=== PATIENT | female | born 1955 | race Two or more races ===

== ENCOUNTER 2017-05-08 14:21 | Emergency (ER) | payer MEDICAID ==
--- NOTE | 2017-05-08 14:52 | ER Document Report ---
ED Psych Disorder / Suicide <ANGELICA CHU - Last Filed: 05/08/17 20:37> - General Mode of Arrival: Ambulatory Information source: Patient, Emergency Med Personnel TRAVEL OUTSIDE OF THE U.S. IN LAST 30 DAYS: No - HPI Onset: Just prior to arrival <YARELI KAUFMAN - Last Filed: 05/08/17 21:59> - General Stated Complaint: PSYCH EVAL Time Seen by Provider: 05/08/17 14:37 Notes: Patient is a 61 year old female who was brought to the emergency department by EMS. EMS states that the landlord called police after unusual behavior from patient. EMS stated that it looks like the patient has not been taking her medication of Zyprexa. While at bedside, patient was not comprehensible. Patient would answer questions with unrelated topics. Able to determine patient lives alone and that she has a son who is with kids in a different state. Patient states that she has been unable to sleep and in need of sleep medications. (YARELI KAUFMAN) Past Medical History - General Information source: Patient, Emergency Med Personnel - Social History Smoking Status: Current Some Day Smoker Family History: None <YARELI KAUFMAN - Last Filed: 05/08/17 21:59> Review of Systems - Review of Systems Constitutional: No symptoms reported EENT: No symptoms reported Cardiovascular: No symptoms reported Respiratory: No symptoms reported Gastrointestinal: No symptoms reported Genitourinary: No symptoms reported Female Genitourinary: No symptoms reported Musculoskeletal: No symptoms reported Skin: No symptoms reported Hematologic/Lymphatic: No symptoms reported Neurological/Psychological: See HPI, Confusion, Other - unable to sleep -: Yes All other systems reviewed and negative <YARELI KAUFMAN - Last Filed: 05/08/17 21:59> Physical Exam - Psychological Associated symptoms: Manic, Psychomotor agitation, Restlessness, Tangential speech, Unable to sleep <ANGELICA CHU - Last Filed: 05/08/17 20:37> - General General appearance: Appears well, Alert In distress: None - HEENT Head: Normocephalic, Atraumatic Eyes: Normal Conjunctiva: Normal Pupils: PERRL - Respiratory Respiratory status: No respiratory distress Breath sounds: Other - Very hoarse voice - Cardiovascular Rhythm: Regular Heart sounds: Normal auscultation - Abdominal Inspection: Normal - Back Back: Normal - Extremities General upper extremity: Normal inspection, Normal ROM - gesticulates General lower extremity: Normal inspection, Normal ROM - Neurological Neuro grossly intact: Yes Cognition: Normal Orientation: AAOx4 Faison Coma Scale Eye Opening: Spontaneous Faison Coma Scale Verbal: Oriented Faison Coma Scale Motor: Obeys Commands Faison Coma Scale Total: 15 Speech: Normal - Skin Skin Temperature: Warm Skin Moisture: Dry Skin Color: Normal <YARELI KAUFMAN Last Filed: 05/08/17 21:59> Course - Laboratory Result Diagrams: 05/08/17 15:00 05/08/17 15:00 - EKG Interpretation by Nv EKG shows normal: Sinus rhythm, [place], Intervals, QRS Complexes, ST-T Waves Rate: Tachycardia - 101 Voltage: Consistant with LVH When compared to previous EKG there are: Previous EKG unavailable <ANGELICA CHU - Last Filed: 05/08/17 20:37> - Laboratory Result Diagrams: 05/08/17 15:00 05/08/17 15:00 <YARELI KAUFMAN - Last Filed: 05/08/17 21:59> - Laboratory Laboratory results interpreted by me: 05/08/17 05/08/17 15:00 19:00 Carbon Dioxide 31 H Glucose 153 H Urine Blood SMALL H Salicylates < 1.0 L Acetaminophen < 10 L Discharge <ANGELICA CHU - Last Filed: 05/08/17 20:37> <YARELI KAUFMAN Last Filed: 05/08/17 21:59> - Discharge Clinical Impression: Acute psychosis Condition: Good Disposition: PSYCH HOSP/UNIT Referrals: ANNA NAZARIO PA-C [Primary Care Provider] - Follow up as needed Scribe Attestation: 05/08/17 16:17 I personally performed the services described in the documentation, reviewed and edited the documentation which was dictated to the scribe in my presence, and it accurately records my words and actions. (ANGELICA CHU) Scribe Documentation - Scribe Written by Stacia:: Stacia Power, 05/08/2017 15:22 acting as scribe for :: Nicolas <YARELI KAUFMAN Last Filed: 05/08/17 21:59>
[2017-05-08 15:17] LABS: ABSOLUTE BASOPHILS # (AUTO) 0.1 10^3/uL (0.0-0.2); ABSOLUTE EOSINOPHILS # (AUTO) 0.1 10^3/uL (0.0-0.6); ABSOLUTE LYMPHOCYTES (AUTO) 2.5 10^3/uL (0.5-4.7); ABSOLUTE MONOCYTES (AUTO) 0.5 10^3/uL (0.1-1.4); ABSOLUTE NEUT (AUTO) 6.1 10^3/uL (1.7-8.2); BASOPHILS % (AUTO) 1.2 % (0-2); EOSINOPHILS % (AUTO) 1.2 % (0-6); HEMATOCRIT 44.1 % (36.0-47.0); HEMOGLOBIN 14.7 g/dL (12.0-15.5); LYMPHOCYTES % (AUTO) 26.9 % (13-45); MEAN CORPUSCULAR HEMOGLOBIN 30.1 pg (27.0-33.4); MEAN CORPUSCULAR HGB CONC 33.2 g/dL (32.0-36.0); MEAN CORPUSCULAR VOLUME 91 fl (80-97); MONOCYTES % (AUTO) 5.8 % (3-13); RED BLOOD COUNT 4.87 10^6/uL (3.72-5.28); RED CELL DISTRIBUTION WIDTH 13.5 % (11.5-14.0); SEGMENTED NEUTROPHILS % (AUTO) 64.9 % (42-78); WHITE BLOOD COUNT 9.4 10^3/uL (4.0-10.5)
[2017-05-08 15:41] LABS: ALANINE AMINOTRANSFERASE 34 U/L (9-52); ALBUMIN 4.4 g/dL (3.5-5.0); ALKALINE PHOSPHATASE 108 U/L (38-126); ANION GAP 12 (5-19); ASPARTATE AMINO TRANSFERASE 22 U/L (14-36); BILIRUBIN,DIRECT 0.3 mg/dL (0.0-0.4); BILIRUBIN,TOTAL 0.4 mg/dL (0.2-1.3); BLOOD UREA NITROGEN 11 mg/dL (7-20); CALCIUM 9.4 mg/dL (8.4-10.2); CARBON DIOXIDE 31 mmol/L (22-30); CHLORIDE 100 mmol/L (98-107); GLUCOSE 153 mg/dL (75-110); POTASSIUM 4.9 mmol/L (3.6-5.0); SODIUM 142.7 mmol/L (137-145)
[2017-05-08 15:48] LABS: ALCOHOL < 10 mg/dL (NONE DETECTED)
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
[2017-05-08] MEDS ORDERED: NICOTINE 21 MG/24 HR PATCH.TD24 TD ONE (16:29)
[2017-05-08] MEDS ORDERED: OLANZAPINE INJ/PF 10 MG SDV IM ONE (16:31)
[2017-05-08] MEDS ORDERED: BENZTROPINE MESYLATE 1 MG TABLET PO SCH (16:45)
[2017-05-08] MEDS ORDERED: BENZTROPINE MESYLATE 1 MG TABLET PO ONE (17:00)
[2017-05-08] MEDS: OLANZAPINE 5 MG TABLET PO SCH (17:18)
[2017-05-08 19:25] LABS: APPEARANCE,URINE CLEAR; BILIRUBIN,URINE NEGATIVE (NEGATIVE); GLUCOSE, URINE NEGATIVE (NEGATIVE); KETONES,URINE NEGATIVE (NEGATIVE); LEUKOCYTE ESTERASE,URINE NEGATIVE (NEGATIVE); NITRITE,URINE NEGATIVE (NEGATIVE); PROTEIN,URINE NEGATIVE (NEGATIVE); URINE SPECIFIC GRAVITY 1.002; UROBILINOGEN,URINE NEGATIVE mg/dL (<2.0)
[2017-05-08 19:39] LABS: URINE BARBITURATES SCREEN NEGATIVE; URINE METHADONE SCREEN NEGATIVE; URINE OPIATES LOW NEGATIVE
[2017-05-08 19:42] LABS: URINE PHENCYCLIDINE SCREEN NEGATIVE
--- NOTE | 2017-05-08 19:45 | EKG REPORT ---
SEVERITY:- ABNORMAL ECG - SINUS TACHYCARDIA PROBABLE LVH WITH SECONDARY REPOL ABNRM BORDERLINE INFERIOR Q WAVES ST DEPRESSION, CONSIDER ISCHEMIA, INF LEADS : Confirmed by: Sam Cheek MD 08-May-2017 19:43:41
--- NOTE | 2017-05-09 08:25 | PSYCHOLOGICAL NOTE ---
Psych Note - Psych Note Psych Note: Patient is a 61-year-old female who presents via EMS due to agitation and bizarre behaviors within her home setting. Patient is reportedly diagnosed with schizophrenia and is followed by [facility]. Patient resides in a family senior care, [facility] home: . Patient is reportedly prescribed Zyprexa 10 mg tabs 2 tabs daily as well as clonazepam at night to help her sleep. Patient is observed sitting in her room actively psychotic talking with no other individuals who are there. Residential care management specialist, Mr. Gonzalez states the patient was acting aggressively today and is clearly not taking her medications Patient disclosed she speaks little Turkish. She continued to state that she only spoke a little Danish. Patient appears to attempt to say that she speaks Polish and Cypriot. Patient was very difficult to understand with mumbling , labile and switching through multiple languages for conversational speech. Patient does not answer questions clearly however does ask why she is in the hospital. Patient disclosed she has a son, [id number] and their children in [place] however became very agitated when asking their names. Patient then just started to recite "[address] [place] [address]." Patient is alert and oriented to person, place. Mood is agitated with congruent affect. Patient denied suicidal/ideations, intent, plan, means. Patient is clearly responding to internal stimuli. Thought processes were disorganized. Conversational speech was labile for rate and tone, with patient switching between multiple languages and possible gibberish. Intellectual abilities were estimated within average range. Attention and focus were poor. Insight, judgment, and impulse control were poor. 289.9 (F 29) unspecified schizophrenia spectrum and other psychotic disorder Recommended for involuntary commitment for further evaluation and disposition. Patient presents acutely psychotic and is a danger to herself and possibly others at this time. Patient is likely noncompliant with her medication regimen as evidenced by the pill bottles which should be near empty however have numerous pills remaining. I consulted with Dr. Mccann in regards to the care management of this patient. EDRI is in agreement with disposition and recommendations
[2017-05-09] MEDS: BENZTROPINE MESYLATE 1 MG TABLET PO SCH (10:14)
[2017-05-09] MEDS: OLANZAPINE 5 MG TABLET PO SCH (10:14)
--- NOTE | 2017-05-09 10:43 | ER Document Report ---
Doctor's Note Notes: 05/09/17 10:42 Rounds: Chart reviewed and patient interviewed. Patient is being evaluated for unusual behavior. Possibly out of medications. Has not been sleeping. Incoherent. May be a little better today. Vital signs are all normal. Lab studies were all normal. Patient is being held for IVC and has been started on Zyprexa. Patient appears to be medically stable for transfer or discharge. Geovanni Portillo MD
[2017-05-09] MEDS ORDERED: HALOPERIDOL 5 MG TABLET PO ONE (15:54)
[2017-05-09] MEDS ORDERED: HALOPERIDOL LACTATE INJ 5 MG/1 ML VIAL IM ONE (16:10)
[2017-05-09] MEDS: HALOPERIDOL 5 MG TABLET PO SCH (18:54)
[2017-05-10] MEDS: BENZTROPINE MESYLATE 1 MG TABLET PO SCH (09:23)
[2017-05-10] MEDS: HALOPERIDOL 5 MG TABLET PO SCH (09:24)
--- NOTE | 2017-05-10 10:38 | ER Document Report ---
Doctor's Note Notes: 05/10/17 10:36 Rounds: Chart reviewed and patient interviewed. Patient says she is feeling better and does seem to be more oriented and focused and able to answer couple questions. Vital signs have been normal. No new lab studies to report. We are looking for placement although patient might be able to function if someone will be able to devote time to helping her. Patient appears to be medically stable for transfer or discharge. Geovanni Portillo MD
[2017-05-10 13:03] VITALS: BP 128/70
--- NOTE | 2017-05-10 13:52 | PSYCHOLOGICAL NOTE ---
Psych Note - Psych Note Psych Note: Patient was accepted to [facility]; transportation will occur today. 289.9 (F 29) unspecified schizophrenia spectrum and other psychotic disorder Recommended for involuntary commitment for further evaluation and disposition. Patient presents acutely psychotic and is a danger to herself and possibly others at this time. Patient is likely noncompliant with her medication regimen as evidenced by the pill bottles which should be near empty however have numerous pills remaining. I consulted with Dr. Mccann in regards to the care management of this patient. EDMD is in agreement with disposition and recommendations
== END 2017-05-10 13:30 ==
LOC: ER 14:21
DX: F23 Brief psychotic disorder (principal); R49.0 Dysphonia; R45.1 Restlessness and agitation; F17.200 Nicotine dependence, unspecified, uncomplicated; R00.0 Tachycardia, unspecified
CPT/HCPCS: 93005; 99285; 96372; 36415; 80307 ×4; 85025; 80053; 81001; 93010; J3490 ×8; J1630

== ENCOUNTER 2019-04-02 18:14 | Emergency (ER) | payer OTHER ==
--- NOTE | 2019-04-02 18:40 | ER Document Report ---
ED General - General Chief Complaint: Psych Problem Stated Complaint: IVC Time Seen by Provider: 04/02/19 18:39 Primary Care Provider: ANNA NAZARIO PA-C [Primary Care Provider] - Follow up as needed Notes: Patient is a 63-year-old female with a history of schizophrenia and dementia who presents to the emergency department on IVC paperwork. She is a resident at [facility] [place], which is an assisted living facility in [place]. According to the staff members, the patient has not been taking her medications for the past few months. Her son is at bedside, as the patient speaks Cape Verdean (but normally speaks Danish) and due to her not being on her medication, continues to speak Cape Verdean. He is able to translate for me. She denies any suicidal or homicidal ideation at this time. She denies any pain. According to the staff at [facility] [place], the patient was trying to climb out a window. They were concerned for her safety. TRAVEL OUTSIDE OF THE U.S. IN LAST 30 DAYS: No - Related Data Allergies/Adverse Reactions: No Known Allergies Allergy (Unverified 04/02/19 19:12) Past Medical History - General Information source: Patient, Relative - Social History Smoking Status: Unknown if Ever Smoked Family History: None Review of Systems - Review of Systems Notes: REVIEW OF SYSTEMS: CONSTITUTIONAL : Denies recent illness. Denies recent unintentional weight loss. Denies fever, chills, or sweats. EENT: Denies eye, ear, throat, or mouth pain, discharge, or symptoms. Denies nasal or sinus congestion. CARDIOVASCULAR: Denies chest pain. RESPIRATORY: Denies shortness of breath, cough, congestion, difficulty breathing, or wheezing. GASTROINTESTINAL: Denies nausea, vomiting, and diarrhea. Denies abdominal pain. Denies constipation. GENITOURINARY: Denies difficulty urinating, burning, blood in urine, urgency or frequency. MUSCULOSKELETAL: Denies neck and back pain. Denies joint pain or swelling. SKIN: Denies rash, itchiness, or lesions HEMATOLOGIC : Denies easy bruising or bleeding. LYMPHATIC: Denies swollen, painful, enlarged glands. NEUROLOGICAL: Denies no numbness or tingling denies weakness. Denies headache. Denies altered mental status. Denies alteration in speech. PSYCHIATRIC: See HPI. All other systems reviewed and negative. Physical Exam - Vital signs Vitals: Temp Pulse Resp BP Pulse Ox 98.7 F 95 16 174/108 H 100 04/02/19 18:52 04/02/19 18:52 04/02/19 18:52 04/02/19 18:52 04/02/19 18:52 - Notes Notes: PHYSICAL EXAMINATION: GENERAL: Older than stated age, no acute distress. HEAD: Normocephalic, atraumatic. EYES: PERRL, conjunctiva normal, all extraocular movements intact, sclera nonicteric ENT: Moist mucous membranes. NECK: Supple, no noticeable swelling, redness, rash. Normal range of motion. LUNGS: Equal breath sounds bilaterally and clear to auscultation. No wheezes rales or rhonchi. CARDIOVASCULAR: S1-S2, regular rate, regular rhythm. Radial pulses 2+, normal. ABDOMEN: Normoactive bowel sounds. Soft, nontender, no guarding, no rebound tenderness, and no masses palpated. EXTREMITIES: Normal strength and range of motion, no pitting or edema. No cyanosis. NEUROLOGICAL: Moves all extremities upon command. Strength 5/5 in all extremities. PSYCH: Talkative in Cape Verdean. SKIN: Warm, dry. No rash, lesions, ulcerations noted. Normal skin turgor. Course - Re-evaluation Re-evalutation: 04/02/19 21:00 Hematology, chemistry, urinalysis, toxicology is all normal. Patient is medically clear for mental health evaluation. IVC paperwork filled out by . - Vital Signs Vital signs: Temp Pulse Resp BP Pulse Ox 98.7 F 95 16 174/108 H 100 04/02/19 18:52 04/02/19 18:52 04/02/19 18:52 04/02/19 18:52 04/02/19 18:52 - Laboratory Result Diagrams: 04/02/19 18:43 04/02/19 18:43 Laboratory results interpreted by me: 04/02/19 04/02/19 18:24 18:43 Carbon Dioxide 31 H Urine Blood SMALL H Salicylates < 1.0 L Acetaminophen < 10 L Discharge - Discharge Clinical Impression: Dementia Qualifiers: Dementia type: associated with other underlying disease Dementia behavioral disturbance: with behavioral disturbance Qualified Code(s): F02.81 - Dementia in other diseases classified elsewhere with behavioral disturbance Schizophrenia Qualifiers: Schizophrenia type: unspecified Qualified Code(s): F20.9 - Schizophrenia, unspecified Condition: Stable Disposition: PSYCH HOSP/UNIT Referrals: ANNA NAZARIO PA-C [Primary Care Provider] - Follow up as needed
[2019-04-02 19:02] LABS: ABSOLUTE BASOPHILS # (AUTO) 0.1 10^3/uL (0.0-0.2); ABSOLUTE EOSINOPHILS # (AUTO) 0.1 10^3/uL (0.0-0.6); ABSOLUTE LYMPHOCYTES (AUTO) 2.4 10^3/uL (0.5-4.7); ABSOLUTE MONOCYTES (AUTO) 0.5 10^3/uL (0.1-1.4); ABSOLUTE NEUT (AUTO) 4.5 10^3/uL (1.7-8.2); EOSINOPHILS % (AUTO) 1.4 % (0-6); HEMATOCRIT 41.1 % (36.0-47.0); HEMOGLOBIN 13.9 g/dL (12.0-15.5); MEAN CORPUSCULAR HEMOGLOBIN 31.2 pg (27.0-33.4); MEAN CORPUSCULAR HGB CONC 33.7 g/dL (32.0-36.0); MEAN CORPUSCULAR VOLUME 93 fl (80-97); MONOCYTES % (AUTO) 7.1 % (3-13); PLATELET COUNT 279 10^3/uL (150-450); RED BLOOD COUNT 4.45 10^6/uL (3.72-5.28); RED CELL DISTRIBUTION WIDTH 13.7 % (11.5-14.0); SEGMENTED NEUTROPHILS % (AUTO) 59.5 % (42-78); TOTAL CELLS COUNTED % (AUTO) 100 %; WHITE BLOOD COUNT 7.6 10^3/uL (4.0-10.5)
[2019-04-02 19:13] LABS: ALBUMIN 4.3 g/dL (3.5-5.0); ALKALINE PHOSPHATASE 85 U/L (38-126); ANION GAP 7 (5-19); ASPARTATE AMINO TRANSFERASE 25 U/L (14-36); BILIRUBIN,DIRECT 0.1 mg/dL (0.0-0.4); BILIRUBIN,TOTAL 0.3 mg/dL (0.2-1.3); BLOOD UREA NITROGEN 14 mg/dL (7-20); CALCIUM 9.6 mg/dL (8.4-10.2); CARBON DIOXIDE 31 mmol/L (22-30); CHLORIDE 102 mmol/L (98-107); GLUCOSE 91 mg/dL (75-110)
[2019-04-02 19:16] LABS: ACETAMINOPHEN < 10 ug/mL (10-30); ALCOHOL < 10 mg/dL (NONE DETECTED); SALICYLATE < 1.0 mg/dL (2.0-20.0)
[2019-04-02] MEDS ORDERED: OLANZAPINE INJ/PF 10 MG SDV IM PRN (19:18)
[2019-04-02 19:50] LABS: APPEARANCE,URINE CLEAR; BILIRUBIN,URINE NEGATIVE (NEGATIVE); COLOR,URINE YELLOW; GLUCOSE, URINE NEGATIVE (NEGATIVE); KETONES,URINE NEGATIVE (NEGATIVE); LEUKOCYTE ESTERASE,URINE NEGATIVE (NEGATIVE); NITRITE,URINE NEGATIVE (NEGATIVE); PROTEIN,URINE NEGATIVE (NEGATIVE); URINE SPECIFIC GRAVITY 1.006; UROBILINOGEN,URINE NEGATIVE mg/dL (<2.0)
--- NOTE | 2019-04-02 19:56 | EKG REPORT ---
SEVERITY:- ABNORMAL ECG - SINUS RHYTHM PROBABLE LVH WITH SECONDARY REPOL ABNRM : Confirmed by: Mitra Barber MD 02-Apr-2019 19:55:47
[2019-04-02 20:08] LABS: URINE AMPHETAMINES SCREEN NEGATIVE; URINE BARBITURATES SCREEN NEGATIVE; URINE BENZODIAZEPINES SCREEN NEGATIVE; URINE COCAINE SCREEN NEGATIVE; URINE MARIJUANA (THC) SCREEN NEGATIVE; URINE METHADONE SCREEN NEGATIVE; URINE PHENCYCLIDINE SCREEN NEGATIVE
--- NOTE | 2019-04-03 11:35 | PSYCHOLOGICAL NOTE ---
Psych Note - Psych Note Date seen by psych provider: 04/03/19 Time seen by psych provider: 07:25 - Observation at 0725. Chart review at 0754. Evaluation from [id number]. Son collateral at 1508. Psych Note: Presenting Problem: 24 Hour IVC Petition, Son and assisted living manager home Don took her to [facility] but they had no beds so sent her to ED, Hx Schizophrenia and Dementia, noncompliance with medications for months, tried to jump out the first story window yesterday, active psychosis, dramatic mood swings from angry to happy with rapid cycling, no SI/HI and primary language is Greenlandic which she has been going back and forth between it and Faroese as well as nonsensical language at times (patient did so during evaluation, seemed tangential). Observed her having psychomotor agitation (walking/wandering hallways, won't stay in bed, won't stay in her room). Son, Matthew/KALPESH, provided collateral. He reported patient has not been sleeping or taking her antipsychotic. He stated she has had moments like this for many years with Hx Schizophrenia. He noted he went on deployment for 6 months this time and she did it when he went off to college. He noted she has been to [facility] for inpatient hospitalization. He identified she is normally "strict with her medications, has him check it, if there is a color change she has a big fit, then she switches to how she is now, doesn't take the medication, makes up stuff, says she's allergic to it." He came to visit patient and reported "I have never seen her this bad." She was verbally and body language aggressive towards him, this clinician and attending nurse. With son around she allowed Head CT and nicotine patch to be applied. Medication recommendations made by the psychiatric medication provider, Dr. Lucia MD., includes: Request Head CT Discontinue home medications: Zyprexa 20MG QHS and Klonopin 0.5MG QD PRN Add Depakote DR 250MG twice a day for mood stabilization Add Buspar 5MG twice a day for anxiety/calming effect/depression/sleep Treating Physicians are asked to consider avoiding the use of antipsychotic medications (Geodon, Haldol, Zyprexa, Thorazine), benzodiazepines (Klonopin, Xnax, Ativan, Valium), some sleep aids (Ambien, Lunesta, Trazodone in high doses, Seroquel), narcotic pain medications, and steroids (especially prolonged use) as these have been known to cause and/or exacerbate agitation, aggression, mood lability, paranoia and psychosis (hallucinations, delusions) in the elderly population with neurodegenerative processes as seen in dementia. Patient refusing PO medications. Recommendation to use Depakene 250MG BID A low dose antipsychotic, such as Risperdal 0.25MG QD or BID can be helpful Impression/Plan: Recommendation to maintain 24 Hour IVC Petition. Patient has Hx of Schizophrenia, has been off medications for several months, has mood lability (euthymic, irritable), and son reported this is the worst he has seen her. Medication recommendations provided. Attending nurse had to persuade patient to take PO medications which took hours. Consulted with Dr. Mccann regarding the management and care of patient. ED Physician in agreement with recommendations.
[2019-04-03] MEDS ORDERED: DIVALPROEX SODIUM 250 MG TAB.SR.24H PO SCH (12:00)
[2019-04-03] MEDS ORDERED: BUSPIRONE HCL 10 MG TABLET PO SCH (12:00)
[2019-04-03] MEDS ORDERED: DIVALPROEX SODIUM 250 MG TAB.SR.24H PO ONE ×2 (13:00→13:23)
[2019-04-03] MEDS ORDERED: BUSPIRONE HCL 10 MG TABLET PO ONE ×2 (13:00→13:23)
[2019-04-03] MEDS: DIVALPROEX SODIUM 250 MG TABLET.DR PO ONE ×2 (13:01→13:25)
[2019-04-03] MEDS: BUSPIRONE HCL 10 MG TABLET PO ONE ×2 (13:01→13:25)
--- NOTE | 2019-04-03 13:23 | ER Document Report ---
Doctor's Note Notes: 04/03/19 13:08 [id number] female with a history of schizophrenia dementia noncompliance was at the assisted living facility when she tried to jump out of the window. vitals stable no distress. She is under IVC for altered mental status with with concerns of dementia. Medication adjustments have been made per mental health medications. Medical exam is unremarkable. PHYSICAL EXAMINATION: GENERAL: Well-appearing, well-nourished and in no acute distress. HEAD: Atraumatic, normocephalic. EYES: Pupils equal round and reactive to light, extraocular movements intact, conjunctiva are normal. NECK: Normal range of motion, supple without lymphadenopathy LUNGS: Breath sounds clear to auscultation bilaterally and equal. No wheezes rales or rhonchi. HEART: Regular rate and rhythm without murmurs ABDOMEN: Soft, nontender, nondistended abdomen. No guarding, no rebound. No masses appreciated. Musculoskeletal: Normal range of motion, no pitting or edema. No cyanosis. NEUROLOGICAL: Cranial nerves grossly intact. PSYCH: Normal mood, anxious affect SKIN: Warm, Dry, normal turgor, no rashes or lesions noted. 04/03/19 13:24
[2019-04-03] MEDS ORDERED: DIPHENHYDRAMINE HCL 50 MG/ML VIAL IM ONE (15:08)
[2019-04-03] MEDS ORDERED: NICOTINE 14 MG/24 HR PATCH.TD24 TD ONE (16:11)
--- NOTE | 2019-04-03 17:00 | RADIOLOGY REPORT (SQ) ---
EXAM DESCRIPTION: CT HEAD WITHOUT COMPLETED DATE/TIME: 04/03/2019 4:51 pm REASON FOR STUDY: AMS COMPARISON: None. TECHNIQUE: Axial images acquired through the brain without intravenous contrast. Images reviewed wi th bone, brain and subdural windows. Additional sagittal and coronal reconstructions were generated. Images stored on PACS. All CT scanners at this facility use dose modulation, iterative reconstruction, and/or weight based d osing when appropriate to reduce radiation dose to as low as reasonably achievable (ALARA). [facility]: Dose Right [facility]: CareDose [facility]: Dose Right [facility]: Teradose 4D [facility]: OptMed RADIATION DOSE: CT Rad equipment meets quality standard of care and radiation dose reduction techniq ues were employed. CTDIvol: 55.2 mGy. DLP: 2499 mGy-cm. mGy. LIMITATIONS: Patient motion FINDINGS: VENTRICLES: Normal size and contour. CEREBRUM: No masses. No hemorrhage. No midline shift. No evidence for acute infarction. Normal gra y/white matter differentiation. No areas of low density in the white matter. CEREBELLUM: No masses. No hemorrhage. No alteration of density. No evidence for acute infarction. EXTRAAXIAL SPACES: No fluid collections. No masses. ORBITS AND GLOBE: No intra- or extraconal masses. Normal contour of globe without masses. CALVARIUM: No fracture. PARANASAL SINUSES: No fluid or mucosal thickening. SOFT TISSUES: No mass or hematoma. OTHER: No other significant finding. IMPRESSION: Limited study due to patient motion. No definite acute intracranial abnormality. EVIDENCE OF ACUTE STROKE: NO. COMMENT: Quality ID # [id number]: Final reports with documentation of one or more dose reduction techniques (e.g., Automated exposure control, adjustment of the mA and/or kV according to patient size, use of iterative reconstruction technique) TECHNICAL DOCUMENTATION: JOB ID: [id number] [employer]- All Rights Reserved Reading location - IP/workstation name: [email or web address]
[2019-04-03] MEDS ORDERED: RISPERIDONE 0.25 MG TABLET PO PRN (17:30)
[2019-04-03] MEDS ORDERED: OLANZAPINE INJ/PF 10 MG SDV IM ONE (19:45)
[2019-04-03] MEDS ORDERED: PROMETHAZINE HCL INJ 25 MG/1 ML VIAL IM ONE (19:49)
[2019-04-04] MEDS ORDERED: ZIPRASIDONE MESYLATE INJ/PF 20 MG SDV IM ONE (00:23)
--- NOTE | 2019-04-04 16:56 | ER Document Report ---
Doctor's Note Notes: 04/04/19 16:51 My normal exam the PHYSICAL EXAMINATION: GENERAL: Well-appearing and in no acute distress. speaking only in Swedish at this time HEAD: Atraumatic, normocephalic. EYES: sclera anicteric, conjunctiva are normal. ENT: nares patent, oropharynx clear without exudates. Moist mucous membranes. NECK: Normal range of motion, supple without lymphadenopathy LUNGS: CTAB and equal. No wheezes rales or rhonchi. HEART: Regular rate and rhythm without murmurs ABDOMEN: Soft, no tenderness. No guarding, no rebound EXTREMITIES: Normal range of motion, no. No cyanosis. BACK: No midline tenderness, no CVA tenderness . NEUROLOGICAL: Cranial nerves grossly intact. Normal speech. Normal gait. PSYCH: Increased psychomotor agitation, cooperative people SKIN: Warm, Dry, normal turgor, no rashes or lesions noted Patient resting on stretcher, patient denies any complaints at this time. Vital signs reviewed as well as diagnostic evaluation. Patient appears medically stable for discharge or transfer pending mental health evaluation. Per mental health team patient was in restraints last night which for most facilities requires 24 hours of not being in restraints prior to being able to be accepted at another facility. Recommendations were made for medication changes
[2019-04-04] MEDS ORDERED: RISPERIDONE 0.25 MG TABLET PO ONE (17:15)
[2019-04-04] MEDS: DIVALPROEX SODIUM 500 MG TAB.SR.24H PO SCH (18:04)
--- NOTE | 2019-04-04 20:41 | ER Document Report ---
Doctor's Note Notes: 04/04/19 20:40 Chart Reviewed, Patient resting on her bed. Introduced myself to her. She became very animated. She is requesting I call her son to come pick her up. Patient is calm at this time. PHYSICAL EXAMINATION: GENERAL: Well-appearing and in no acute distress HEAD: Atraumatic, normocephalic. EYES: extraocular movements intact, sclera anicteric, conjunctiva are normal. ENT: nares patent, Moist mucous membranes. NECK: Normal range of motion, supple LUNGS: Respiratory rate even unlabored HEART: Regular rate and rhythm without murmurs ABDOMEN: Soft, no tenderness. No guarding, no rebound EXTREMITIES: Normal range of motion, NEUROLOGICAL: Cranial nerves grossly intact. PSYCH: Normal mood, normal affect. SKIN: Warm, Dry, normal turgor, no rashes or lesions noted 04/05/19 08:11 pt slept well, no agressive behavior, no restraints placed,report given to Oswaldo julian
[2019-04-04] MEDS: CLONIDINE 0.1 MG/24 HR PATCH.TDWK TD SCH (22:01)
[2019-04-05] MEDS: RISPERIDONE 0.25 MG TABLET PO SCH ×2 (08:57→16:06)
[2019-04-05] MEDS: DIVALPROEX SODIUM 500 MG TAB.SR.24H PO SCH ×2 (10:00→18:21)
--- NOTE | 2019-04-05 11:59 | ER Document Report ---
Doctor's Note Notes: 04/05/19 11:56 63-year-old female with a history of schizophrenia dementia noncompliance was at the assisted living facility when she tried to jump out of the window. vitals stable no distress. She is under IVC for altered mental status with with concerns of dementia. Medication adjustments previously made this ED visit per mental health medications. Medical exam is unremarkable. As the rounding provider this AM, I assessed the patient's labs, vitals, and records. No concerning findings this morning. Patient denies any acute complaints. Patient is awaiting placement. It appears the patient is medically stable for transfer or discharge. ROS: Denies any headache, fever, URI, sore throat, chest pain, palpitations, syncope, cough, shortness of breath, wheeze, dyspnea, abdominal pain, nausea/vomiting/diarrhea, urinary retention, back pain, loss of control of bowel or bladder, numbness/tingling, saddle anesthesia, muscle paralysis/weakness, or rash. PHYSICAL EXAMINATION: Reviewed vital signs and charting by RN GENERAL: Alert, interacts well. No acute distress. HEAD: Normocephalic, atraumatic. EYES: Pupils equal and round. Extraocular movements intact. ENT: Oral mucosa moist, tongue midline. NECK: Full range of motion. Trachea midline. LUNGS: Clear to auscultation bilaterally, no wheezes, rales, or rhonchi. No respiratory distress. HEART: Regular rate and rhythm. No murmur ABDOMEN: soft, non-tender. No distention. Bowel sounds present EXTREMITIES: Moves all 4 extremities spontaneously. No edema, No cyanosis. PSYCH: Normal affect, normal mood. SKIN: Warm, dry, normal turgor. No rashes or lesions noted.
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
--- NOTE | 2019-04-05 16:01 | PSYCHOLOGICAL NOTE ---
Psych Note - Psych Note Date seen by psych provider: 04/05/19 Time seen by psych provider: 08:00 Psych Note: Presenting Problem: 24 Hour IVC [place], Son and assisted living homeowner association manager Don took her to [facility] but they had no beds so sent her to ED, Hx Schizophrenia and Dementia, noncompliance with medications for months, tried to jump out the first story window yesterday, active psychosis, dramatic mood swings from angry to happy with rapid cycling, no SI/HI and primary language is Norwegian which she has been going back and forth between it and [place] Islander as well as nonsensical language at times. Medications were further adjusted yesterday. Patient remained out of restraints for over 24 hours. She still had psychomotor agitation but allowed for some redirection today. She spoke more [place] Islander but still went into Norwegian at times as well as what seemed like nonsensical statements. Diagnosis: Schizophrenia by Hx Impression/Plan: Recommendation to maintain IVC and seek placement. Medications started 04/03/19, then adjustments yesterday after being off medications for months. Could not look for placement yesterday due to having been in restraints. Consulted with Dr. Mccann regarding the management and care of patient. ED Physician in agreement with recommendations.
[2019-04-05] MEDS: CLONIDINE 0.1 MG/24 HR PATCH.TDWK TD SCH (22:00)
--- NOTE | 2019-04-06 00:55 | ER Document Report ---
Doctor's Note Notes: 04/06/19 00:54 Chart reviewed. Patient resting quietly no distress sleeping PHYSICAL EXAMINATION: GENERAL: no noted distress LUNGS: RR even unlabored HEART: Regular rate EXTREMITIES: Normal range of motion, PSYCH: calm sleeping
[2019-04-06] MEDS: RISPERIDONE 0.25 MG TABLET PO SCH ×2 (08:22→16:44)
[2019-04-06] MEDS: DIVALPROEX SODIUM 500 MG TAB.SR.24H PO SCH ×2 (10:02→18:06)
--- NOTE | 2019-04-06 10:44 | ER Document Report ---
Doctor's Note Notes: 04/06/19 10:43 Patient was awake and call in the room. No acute distress. Patient responded in Kiswahili. Per nursing, patient is still having visual hallucinations. Still awaiting placement for the patient. She has been out of restraints for greater than 24 hours. PHYSICAL EXAMINATION: Reviewed vital signs and charting by RN GENERAL: Alert, interacts well. No acute distress. HEAD: Normocephalic, atraumatic. EYES: Pupils equal and round. Extraocular movements intact. ENT: Oral mucosa moist, tongue midline. NECK: Full range of motion. Trachea midline. EXTREMITIES: Moves all 4 extremities spontaneously. No edema, No cyanosis. PSYCH: Flat affect, depressed mood SKIN: Warm, dry, normal turgor. No rashes or lesions noted.
--- NOTE | 2019-04-06 15:49 | PSYCHOLOGICAL NOTE ---
Psych Note - Psych Note Date seen by psych provider: 04/06/19 Time seen by psych provider: 07:20 Psych Note: Reason for Consult: psychosis Patient is a 63-year-old female with a history of schizophrenia and dementia who presents to the emergency department on IVC paperwork. She is a resident at [facility], which is an assisted living facility in [place]. According to the staff members, the patient has not been taking her medications for the past few months. Medication recommendations made by the psychiatric medication provider, Dr. Lucia MD., includes: Depakote to 500MG twice a day for mood stabilization Risperdal 0.25MG at 0400 and 1600 for sun downing like psychosis Clonidine 0.1MG Patch every 24 hours for calming effect Treating Physicians are asked to consider avoiding the use of antipsychotic medications (Geodon, Haldol, Zyprexa, Thorazine), benzodiazepines (Klonopin, Xnax, Ativan, Valium), some sleep aids (Ambien, Lunesta, Trazodone in high doses, Seroquel), narcotic pain medications, and steroids (especially prolonged use) as these have been known to cause and/or exacerbate agitation, aggression, mood lability, paranoia and psychosis (hallucinations, delusions) in the elderly population with neurodegenerative processes as seen in dementia. Impression/Plan: Patient is recommended to continue under IVC. Patient continues to demonstrate auditory and visual hallucinations. Patient has been able to communicate slightly in Uzbek today however most communication is in Comoran. Patient has attempted to make phone calls and has carried on conversations with no one on the other line (staff can hear beeping and dial tone). Patient will be reevaluated. Dr. Mccann was consulted and care management of this patient; any physicians in agreement with recommendation for disposition.
[2019-04-06] MEDS: CLONIDINE 0.1 MG/24 HR PATCH.TDWK TD SCH (22:13)
--- NOTE | 2019-04-07 04:59 | ER Document Report ---
Doctor's Note Notes: 04/07/19 04:59 Chart review. Patient resting quietly. Nurse reports patient's more cooperative. 04/07/19 07:09 Patient rested well all night.
[2019-04-07] MEDS: RISPERIDONE 0.25 MG TABLET PO SCH ×2 (08:16→15:46)
[2019-04-07] MEDS: DIVALPROEX SODIUM 500 MG TAB.SR.24H PO SCH (10:52)
--- NOTE | 2019-04-07 11:33 | RADIOLOGY REPORT (SQ) ---
EXAM DESCRIPTION: WRIST RIGHT 3 VIEWS COMPLETED DATE/TIME: 04/07/2019 11:11 am REASON FOR STUDY: right wrist swelling Z04.6 ENCNTR FOR GENERAL PSYCHIATRIC EXAM, REQUESTED BY AUTH F20.9 SCHIZOPHRENIA, UNSPECIFIED F02.81 DEMENTIA IN OTH DISEASES CLASSD ELSWHR W BEHAVIORAL D COMPARISON: None. NUMBER OF VIEWS: Three views. TECHNIQUE: AP, lateral, and oblique radiographic images acquired of the right wrist. LIMITATIONS: None. FINDINGS: MINERALIZATION: Normal. BONES: No acute fracture or dislocation. No worrisome bone lesions. Normal alignment. SOFT TISSUES: No soft tissue swelling. No foreign body. OTHER: No other significant finding. IMPRESSION: 1. NEGATIVE STUDY OF THE RIGHT WRIST. TECHNICAL DOCUMENTATION: JOB ID: [id number] [employer]- All Rights Reserved Reading location - IP/workstation name: [email or web address]
--- NOTE | 2019-04-07 11:36 | RADIOLOGY REPORT (SQ) ---
EXAM DESCRIPTION: CHEST 2 VIEWS COMPLETED DATE/TIME: 04/07/2019 11:11 am REASON FOR STUDY: medical clearance COMPARISON: 02/09/2016 EXAM PARAMETERS: NUMBER OF VIEWS: two views TECHNIQUE: Digital Frontal and Lateral radiographic views of the chest acquired. RADIATION DOSE: NA LIMITATIONS: none FINDINGS: LUNGS AND PLEURA: Mild hyperinflation of the lungs and flattening of the diaphragms, stab le finding. No acute pulmonary consolidation. No pneumothorax or pleural effusion. MEDIASTINUM AND HILAR STRUCTURES: No masses or contour abnormalities. HEART AND VASCULAR STRUCTURES: Borderline cardiomegaly. No evidence for failure. BONES: No acute findings. HARDWARE: None in the chest. OTHER: No other significant finding. IMPRESSION: 1. Mild hyperinflation of the lungs and flattening of the diaphragms, stable finding. No acute pulmonary consolidation. 2. Borderline cardiomegaly. No evidence for failure. TECHNICAL DOCUMENTATION: JOB ID: [id number] [employer]- All Rights Reserved Reading location - IP/workstation name: [email or web address]
--- NOTE | 2019-04-07 16:52 | PSYCHOLOGICAL NOTE ---
Psych Note - Psych Note Date seen by psych provider: 04/07/19 Time seen by psych provider: 08:25 Psych Note: Reason for Consult: psychosis Patient is a 63-year-old female with a history of schizophrenia and dementia who presents to the emergency department on IVC paperwork. She is a resident at [facility], which is an assisted living facility in [place]. According to the staff members, the patient has not been taking her medications for the past few months. Check in with patient Patient states that her wrist hurts when she applies pressure. Clinician notes patient speaks Mosotho during entire evaluation. She discloses the medication she is supposed to be on and becomes slightly agitated when discussing medication changes. Patient reports she does not want to be on Depakote that she is supposed to be on Geodon, clonazepam and Zyprexa. Patient confirms that she wants to take her medications. Eye contact is well-maintained. Clinician notes patient based independently and has been engaging and acting appropriately with staff. Patient's Depakote level is now therapeutic. Medication recommendations made by the psychiatric medication provider, Dr. Lucia MD., includes: Depakote to 500MG twice a day for mood stabilization Risperdal 0.25MG at 0400 and 1600 for sun downing like psychosis Clonidine 0.1MG Patch every 24 hours for calming effect Treating Physicians are asked to consider avoiding the use of antipsychotic medications (Geodon, Haldol, Zyprexa, Thorazine), benzodiazepines (Klonopin, Xnax, Ativan, Valium), some sleep aids (Ambien, Lunesta, Trazodone in high doses, Seroquel), narcotic pain medications, and steroids (especially prolonged use) as these have been known to cause and/or exacerbate agitation, aggression, mood lability, paranoia and psychosis (hallucinations, delusions) in the elderly population with neurodegenerative processes as seen in dementia. Impression/Plan: Patient is recommended for rescind of IVC and is cleared from acute psychiatric services. Patient is engaging in self care including showering etc. Patient is also taking medications with no difficulties and is now therapeutic on Depakote. She is no longer demonstrating behaviors of responding to internal stimuli, speaking in Mosotho and caring on organized and linear conversation. Patient no longer meets IVC criteria per [place] GS 122C. Patient is recommended to return to her longterm and continued recommended medications. Dr. Mccann was consulted and care management of this patient; any physicians in agreement with recommendation for disposition.
[2019-04-07 18:05] VITALS: BP 144/88
--- NOTE | 2019-04-10 07:36 | EKG REPORT ---
SEVERITY:- ABNORMAL ECG - SINUS RHYTHM SHORT OK INTERVAL, ACCELERATED AV CONDUCTION LEFT VENTRICULAR HYPERTROPHY BORDERLINE T ABNORMALITIES, INFERIOR LEADS : Confirmed by: Sam Cheek MD 10-Apr-2019 07:35:48
== END 2019-04-07 18:35 | disposition home or self-care (01) ==
LOC: ER 18:14
DX: F20.9 Schizophrenia, unspecified (principal); F02.81 Dementia in other diseases classified elsewhere, unspecified severity, with behavioral disturbance; T43.506A Underdosing of unspecified antipsychotics and neuroleptics, initial encounter; Z91.14 Patient's other noncompliance with medication regimen; I51.7 Cardiomegaly; M25.431 Effusion, right wrist; Z78.1 Physical restraint status
CPT/HCPCS: 93005 ×2; 99285; 96372; 36415; 80307 ×4; 85025; 80053; 81001; 80164; 71046; 73110; 93010 ×2; J1200; J3490 ×15; J3486; J2550